=== PATIENT | female | born 1955 | race Hispanic/Latino ===

== ENCOUNTER 2017-08-14 18:30 | Emergency (ER) | payer OTHER ==
[2017-08-14 18:56] VITALS: RESP 18
[2017-08-14] MEDS ORDERED: Famotidine 20mg/50ml 20 MG/50 ML BAG IVPB STA (19:06)
[2017-08-14 19:52] LABS: BASO # 0.02 K/mm3 (0.0-2.0); BASO % 0.3 % (0.0-3.0); EOS # 0.4 (0.0-0.7); EOS % 4.8 % (1.5-5.0); GRAN # 5.64 (1.4-6.5); GRAN % 75.2 % (50.0-68.0); HEMOGLOBIN 14.3 g/dL (12.0-16.0); LYMPH % 12.8 % (22.0-35.0); MEAN CELL VOLUME 81.1 fl (80.0-105.0); MEAN CORPUSCULAR HEMOGLOBIN 26.8 pg (25.0-35.0); MEAN CORPUSCULAR HGB CONC 33.1 g/dl (31.0-37.0); MEAN PLATELET VOLUME 9.7 fl (7.0-11.0); MONO # 0.5 (0.1-0.6); MONO % 6.9 % (1.0-6.0); RBC 5.33 10^6/uL (3.5-6.1); WHITE BLOOD COUNT 7.5 10^3/ul (4.5-11.0)
[2017-08-14 19:56] LABS: INR 1.02 (0.93-1.08); PARTIAL THROMBOPLASTIN TIME 33.8 Seconds (25.1-36.5); PROTHROMBIN TIME 11.6 SECONDS (9.4-12.5)
[2017-08-14 19:59] LABS: ALB/GLOB RATIO 1.3 (1.1-1.8); ALBUMIN 4.5 g/dL (3.0-4.8); ALT/SGPT 46 U/L (7-56); AMYLASE 55 U/L (35-125); AST/SGOT 41 U/L (14-36); BLOOD UREA NITROGEN 15 mg/dL (7-21); CALCIUM 9.7 mg/dL (8.4-10.5); GFR AFRICAN-AMERICAN > 60; GFR NON-AFRICAN AMERICAN 51; LIPASE 102 U/L (23-300)
[2017-08-14 20:09] LABS: TROPONIN I < 0.01 ng/mL
--- NOTE | 2017-08-14 20:38 | ED PDOC ---
Arrival/HPI - General Chief Complaint: GI Problem Time Seen by Provider: 08/14/17 18:57 Historian: Patient - History of Present Illness Narrative History of Present Illness (Text): 08/14/17 20:35 61yo female with no PMHx who present with pelvic abdominal pain with associated nausea, vomiting, diarrhea x 2days. States the grandson had similar symptoms first. She states she can't keep anything down. She denies fever, chills, melena , hematmesis, chest pain, urinary symptoms, any other complaint. Past Medical History - Provider Review Nursing Documentation Reviewed: Yes - Cardiac Hx Cardiac Disorders: No - Pulmonary Hx Respiratory Disorders: Yes Hx Asthma: Yes - Neurological Hx Neurological Disorder: No - HEENT Hx HEENT Disorder: No - Renal Hx Renal Disorder: Yes Other/Comment: DONATED A KIDNEY - Endocrine/Metabolic Hx Endocrine Disorders: No - Hematological/Oncological Hx Blood Disorders: Yes Hx Cancer: Yes (UTERINE, CERVICAL, OVARIAN) - Integumentary Hx Dermatological Disorder: No - Musculoskeletal/Rheumatological Hx Musculoskeletal Disorders: Yes Hx Back Pain: Yes - Gastrointestinal Hx Gastrointestinal Disorders: Yes Hx Gastroesophageal Reflux: Yes - Genitourinary/Gynecological Hx Genitourinary Disorders: Yes Hx Ovarian Cancer: Yes - Psychiatric Hx Psychophysiologic Disorder: Yes Hx Anxiety: Yes Hx Depression: Yes Hx Substance Use: No - Surgical History Hx Appendectomy: Yes Hx Orthopedic Surgery: Yes (KNEES) Other/Comment: R/T TO CA UTERINE, OVARY Family/Social History - Physician Review Nursing Documentation Reviewed: Yes Family/Social History: Unknown Family HX Smoking Status: Former Smoker Hx Alcohol Use: No Hx Substance Use: No Allergies/Home Meds Allergies/Adverse Reactions: Allergies No Known Allergies Allergy (Verified 08/14/17 18:45) Home Medications: Home Meds Medication Instructions Recorded Confirmed Acetaminophen [Tylenol] 650 mg PO Q4 PRN 08/14/17 08/14/17 Review of Systems - Physician Review All systems were reviewed & negative as marked: Yes - Review of Systems Constitutional: Normal Eyes: Normal ENT: Normal Respiratory: Normal Cardiovascular: Normal Gastrointestinal: Abdominal Pain, Diarrhea, Nausea, Vomiting. absent: Constipation, Hematochezia, Hematemesis Genitourinary Female: Normal Musculoskeletal: Normal Skin: Normal Neurological: Normal Endocrine: Normal Hemo/Lymphatic: Normal Psychiatric: Normal Physical Exam Vital Signs Reviewed: Yes Vital Signs Temp Pulse Resp BP Pulse Ox 08/14/17 23:01 97.6 F 87 18 115/78 100 08/14/17 18:55 99.1 F 107 H 18 110/79 97 08/14/17 18:46 99.1 F 107 H 17 110/79 95 Temperature: Afebrile Blood Pressure: Normal Pulse: Regular Respiratory Rate: Normal Appearance: Positive for: Well-Appearing, Non-Toxic, Comfortable Pain Distress: None Mental Status: Positive for: Alert and Oriented X 3 - Systems Exam Head: Present: Atraumatic, Normocephalic Pupils: Present: PERRL Extroacular Muscles: Present: EOMI Conjunctiva: Present: Normal Mouth: Present: Moist Mucous Membranes Neck: Present: Normal Range of Motion Respiratory/Chest: Present: Clear to Auscultation, Good Air Exchange. No: Respiratory Distress, Accessory Muscle Use Cardiovascular: Present: Regular Rate and Rhythm, Normal S1, S2. No: Murmurs Abdomen: Present: Tenderness (LLQ abdominal pain), Guarding (Voluntary), Other ( soft). No: Distention, Peritoneal Signs, Rebound, McBurney's Point Tender, Rovsing's Sign Present Back: Present: Normal Inspection Upper Extremity: Present: Normal Inspection. No: Cyanosis, Edema Lower Extremity: Present: Normal Inspection. No: Edema Neurological: Present: GCS=15, CN II-XII Intact, Speech Normal Skin: Present: Warm, Dry, Normal Color. No: Rashes Psychiatric: Present: Alert, Oriented x 3, Normal Insight, Normal Concentration Medical Decision Making ED Course and Treatment: 08/15/17 00:01 Pt's symptoms improved in ED. She was able to tolerate PO challenge in ED. Lab was unremarkable. Abdominal/Pelvic CT IMPRESSION: - No evidence of significant acute process. - Mild right ovarian enlargement, with no large ovarian lesions seen. This finding is of uncertain clinical significance. Recommend followup pelvic ultrasound as indicated clinically. - Extensive colonic diverticulosis, without diverticulitis. - Multiple liver lesions, most likely representing hepatic cysts. - Evidence of prior nephrectomy. - See above for remaining findings. Result was DW the pt. 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 - Lab Interpretations Lab Results: 08/14/17 19:30 08/14/17 19:30 Lab Results 08/14/17 19:30: Lactic Acid 1.0 08/14/17 19:30: Sodium 143, Potassium 4.1, Chloride 103, Carbon Dioxide 23, Anion Gap 21 H, BUN 15, Creatinine 1.1, Est GFR ( Amer) > 60, Est GFR ( Non-Af Amer) 51, Random Glucose 103, Calcium 9.7, Total Bilirubin 1.0, AST 41 H , ALT 46, Alkaline Phosphatase 87, Lactate Dehydrogenase 488, Total Creatine Kinase 89, Troponin I < 0.01, Total Protein 7.9, Albumin 4.5, Globulin 3.4, Albumin/Globulin Ratio 1.3, Amylase 55, Lipase 102 08/14/17 19:30: PT 11.6, INR 1.02, APTT 33.8 08/14/17 19:30: WBC 7.5, RBC 5.33, Hgb 14.3, Hct 43.2, MCV 81.1, MCH 26.8, MCHC 33.1, RDW 14.0, Plt Count 258, MPV 9.7, Gran % 75.2 H, Lymph % (Auto) 12.8 L, [place] % (Auto) 6.9 H, Eos % (Auto) 4.8, Baso % (Auto) 0.3, Gran # 5.64, Lymph # ( Auto) 1.0 L, [place] # (Auto) 0.5, Eos # (Auto) 0.4, Baso # (Auto) 0.02 - RAD Interpretation Radiology Orders: 08/14/17 19:03 ABD & PELVIS IV CONTRAST ONLY [CT] Stat - Medication Orders Current Medication Orders: Discontinued Medications Famotidine (Pepcid 20mg/50ml Premix) 20 mg in 50 mls @ 100 mls/hr IVPB STAT STA Stop: 08/14/17 19:35 Last Admin: 08/14/17 19:26 Dose: 100 mls/hr eMAR Start Stop Document 08/14/17 19:26 MS (Rec: 08/14/17 19:27 MS [id number]) Intravenous Solution Start Date 08/14/17 Start Time 19:26 End Date 08/14/17 End time 19:56 Total Infusion Time 30 Ondansetron HCl (Zofran Inj) 4 mg IVP STAT STA Stop: 08/14/17 19:03 Last Admin: 08/14/17 19:26 Dose: 4 mg IVP Administration Document 08/14/17 19:26 MS (Rec: 08/14/17 19:26 MS [id number]) Charges for Administration # of IVP Administrations 1 Disposition/Present on Arrival - Present on Arrival Any Indicators Present on Arrival: No History of DVT/PE: No History of Uncontrolled Diabetes: No Urinary Catheter: No History of Decub. Ulcer: No History Surgical Site Infection Following: None - Disposition Have Diagnosis and Disposition been Completed?: Yes Diagnosis: Abdominal pain Disposition: HOME/ ROUTINE Disposition Time: 22:40 Patient Plan: Discharge Condition: STABLE Discharge Instructions (ExitCare): Acute Abdomen (Belly Pain), Adult (DC) Additional Instructions: Follow up with your Doctor Return to ED for any new or worsening symptoms Prescriptions: Famotidine [Pepcid] 40 mg PO DAILY #15 tab Ondansetron ODT [Zofran ODT] 4 mg PO Q6 #7 odt Referrals: PCP,NO [Primary Care Provider] - Follow up with primary [facility] [place] [Outside] - Follow up with primary Forms: [employer] / [employer] (Honduran)
[2017-08-14] MEDS ORDERED: Iodixanol 320 MG/ML 100 ML BOTTLE IV ONE (20:51)
--- NOTE | 2017-08-14 22:36 | CT ---
EXAM: CT Abdomen and Pelvis With Intravenous Contrast EXAM DATE/TIME: 08/14/2017 7:03 PM CLINICAL HISTORY: 61 years old, female; Pain; Abdominal pain; Localized; Left lower quadrant (llq); Prior surgery; Surgery type: Left kidney removed - appendectomy; Additional info: Llq pain TECHNIQUE: Axial computed tomography images of the abdomen and pelvis with intravenous contrast. All CT scans at this facility use one or more dose reduction techniques, viz.: automated exposure control; ma/kV adjustment per patient size (including targeted exams where dose is matched to indication; i.e. head); or iterative reconstruction technique. Coronal and sagittal reformatted images were created and reviewed. CONTRAST: 96 mL of VISIPAQUE administered intravenously. COMPARISON: No relevant prior studies available. FINDINGS: LIMITATIONS: Mild streak/motion artifact. LUNG BASES: No significant abnormality seen. ABDOMEN: LIVER: Multiple fluid density lesions in the liver, too numerous to count, most likely representing multiple hepatic cysts. The largest of these measures 4 x 3.4 cm. GALLBLADDER AND BILE DUCTS: No CT evidence of acute cholecystitis. No evidence of significant biliary ductal dilatation. PANCREAS: No CT evidence of acute pancreatitis. SPLEEN: No acute abnormality of the spleen identified. ADRENALS: No acute abnormality of the adrenal glands identified. KIDNEYS AND URETERS: Evidence of previous left nephrectomy. No acute abnormality of the right kidney identified. STOMACH AND BOWEL: Extensive colonic diverticulosis, without evidence of acute diverticulitis. Otherwise, no significant abnormality of the bowel is identified. No acute abnormality of the stomach or duodenum identified. No evidence of small bowel obstruction. PELVIS: APPENDIX: Normal appendix is not seen, and there is a reported history of previous appendectomy. BLADDER: No acute abnormality of the bladder identified. REPRODUCTIVE: Right ovary is mildly enlarged, measuring 4.6 x 2.6 x 4.1 cm. No large ovarian lesions are seen. Uterus is surgically absent. Surgical clips in the left adnexal region, most likely secondary to prior left oophorectomy. ABDOMEN and PELVIS: INTRAPERITONEAL SPACE: No evidence of free intraperitoneal air or fluid. BONES/JOINTS: No acute fractures or other acute bony abnormality noted. SOFT TISSUES: No acute abnormality of the visualized soft tissues is seen. VASCULATURE: No evidence of abdominal aortic aneurysm. No evidence of periaortic hemorrhage. LYMPH NODES: Multiple small lymph nodes seen in the small bowel mesentery and retroperitoneal, none appearing pathologically enlarged. This is a nonspecific finding. No evidence of diffuse pathologic lymphadenopathy. IMPRESSION: - No evidence of significant acute process. - Mild right ovarian enlargement, with no large ovarian lesions seen. This finding is of uncertain clinical significance. Recommend followup pelvic ultrasound as indicated clinically. - Extensive colonic diverticulosis, without diverticulitis. - Multiple liver lesions, most likely representing hepatic cysts. - Evidence of prior nephrectomy. - See above for remaining findings.
[2017-08-14 23:03] VITALS: BP 115/78; PULSE 87; TEMP 97.6; O2SAT 100
--- NOTE | 2017-08-15 18:56 | CARD ---
APPROVED REPORT EKG Measurement Heart [id number] <Conclusion> Normal sinus rhythm Nonspecific T wave abnormality Abnormal ECG
== END 2017-08-14 23:01 | disposition home or self-care (01) ==
LOC: ED 18:30
DX: R10.9 Unspecified abdominal pain (principal); K21.9 Gastro-esophageal reflux disease without esophagitis; Z85.41 Personal history of malignant neoplasm of cervix uteri; Z85.43 Personal history of malignant neoplasm of ovary
CPT/HCPCS: 74177; 80053; 82150; 82550; 83605; 83615; 83690; 84484; 85025; 85610; 85730; 87040; 93005; 96365; 96375; 99284; J2405; Q9967